=== PATIENT | male | born 1970 | race Caucasian/White ===

== ENCOUNTER → 2021-09-07 11:12 | Outpatient (BNVA) | payer MEDICAID, SELFPAY | PROVIDERS: Visit Provider Nurse Practitioner Family | DX: Z20.822 Contact with and (suspected) exposure to COVID-19 (principal); R51.9 Headache, unspecified; J22 Unspecified acute lower respiratory infection | CPT/HCPCS: 87400; 87635 ==

== ENCOUNTER 2021-12-30 10:47 | Emergency (ER) | payer SELFPAY ==
[2021-12-30 11:11] VITALS: BP 132/89; PULSE 66; RESP 18; TEMP 36.7; O2SAT 97
[2021-12-30 11:28] VITALS: BP 126/77; PULSE 63; RESP 16; O2SAT 95
[2021-12-30 12:19] LABS: Basophils % 0.8 %; Eosinophils % 0.8 %; Hematocrit 44.8 % (42.0-52.0); Hemoglobin 15.2 g/dL (11.7-16.6); Lymphocytes # 1.2 10^3/uL (0.8-4.8); Lymphocytes % 25.9 %; Mean Corpuscular HGB Conc 33.9 g/dL (30.0-36.0); Mean Corpuscular Hemoglobin 29.7 pg (28.0-34.0); Mean Corpuscular Volume 87.7 fl (80-94); Mean Platelet Volume 11.7 fL (7.4-10.4); Monocytes # 0.3 10^3/uL (0.2-0.9); Monocytes % 6.4 %; Neutrophils # 3.11 10^3/uL (1.8-7.7); Neutrophils % 66.1 %; Nucleated Red Blood Cells % 0 %; Platelet Count 258 10^3/cmm (130-400); Red Blood Count 5.11 10^6/uL (4.1-5.3); Red Cell Distribution Width 12.6 % (12.1-15.1); White Blood Count 4.7 10^3/uL (4.0-10.0)
[2021-12-30] MEDS: sodium chloride 0.9% 1,000 ML 999 ML IV (12:24)
[2021-12-30 12:28] VITALS: BP 143/86; PULSE 53; RESP 16; O2SAT 95
[2021-12-30 12:41] LABS: Alanine Aminotransferase 26 U/L (0-41); Albumin Level 4.2 g/dL (3.5-5.2); Alkaline Phosphatase 75 IU/L (40-130); Anion Gap 13.4 (5-19); Aspartate Amino Transferase 29 U/L (0-40); Blood Urea Nitrogen 12 mg/dL (6-20); Calcium 8.9 mg/dL (8.5-10.5); Carbon Dioxide 27 mmol/L (22-29); Chloride 99 mmol/L (98-107); Creatine Phosphokinase 96 U/L (39-308); Creatinine Clr Calc Pharmacy 98.6564; Globulin 3.5 g/dL (1.3-4.6); Glomerular Filtration Rate 140.9 mL/min (90-130); Glucose 101 mg/dL (65-115); Osmolality Calculated 280 mOsm/kg (285-295); Potassium 4.4 mmol/L (3.5-5.1); Sodium 135 mmol/L (136-145); Total Bilirubin 0.4 mg/dL (0.15-1.2); Total Protein 7.7 g/dL (6.6-8.7)
[2021-12-30 13:02] VITALS: BP 174/90; PULSE 62; RESP 16
--- NOTE | 2021-12-30 13:05 | ED_ITS ---
HPI - General Adult General: Chief complaint: General Medical Stated complaint: toes/fingers drawing up at night Time Seen by Provider: 12/30/21 11:35 History of Present Illness: 51-year-old male presents to emergency department chief complaint of muscle cramps have been ongoing in his feet over the last several days reports that he is on his feet a lot and his primary job. The pat sabine reports that he has been taking some of his sisters medication for high blood pressure and has a partial diuretic in it due to him having lack of insurance and finds he reports is been a new occurrence for last 1 week he reports no shortness of breath or chest pain palpitations reporting that the cramping in his feet has been an ongoing issue for greater than 1 week patient has no other complaints. Associated symptoms: Deny chest pain, dyspnea, headache(s), malaise, nausea, rash, palpitations or vomiting Review of Systems General: Reports: 10 or more systems reviewed and unremarkable except in HPI and below Const: Denies: fever(s), chills, fatigue or malaise Eyes: Denies: change in vision or blurry vision Card: Denies: chest pain or palpitations Resp: Denies: dyspnea or productive cough GI: Denies: abdominal pain, nausea or vomiting : Denies: flank pain Musc: Denies: extremity swelling Skin/Breast: Denies: rash or pruritus Neuro: Denies: headache(s) Psych: Denies: anxiety or depression Claudy/Lymph: Denies: easy bleeding All/Imm: Denies: urticaria, throat swelling or facial swelling [facility] ED PFSH: Medical History (Updated 12/30/21 @ 12:53 by Timmy Lamar) Lower respiratory infection Social History Smoking and tobacco status: current every day smoker Physical Exam Const: COMMON NORMALS: no acute distress, patient oriented x3 and healthy appearing HENMT: COMMON NORMALS: normocephalic and atraumatic HEAD & SCALP: normocephalic and atraumatic Eye: COMMON NORMALS: Equal, round and reactive pupils present and EOMs intact bilaterally PUPIL: Yes Equal, round and reactive pupils present Neck/C-Spine: COMMON NORMALS: full ROM, supple and no JVD Lymph: LYMPHATIC: no lymphadenopathy noted Chest: COMMONS NORMALS: normal inspection of the chest and normal palpation of entire chest wall Resp: COMMON NORMALS: normal respiratory effort, No retractions and clear to auscultation bilaterally EFFORT & INSPECTION: Yes able to speak in complete sentences and Yes symmetric chest movement AUSCULTATION: clear to auscultation bilaterally Cardio: COMMON NORMALS: no JVD, regular rate and regular rhythm RATE: regular rate RHYTHM: regular rhythm GI: COMMON NORMALS: Normal to inspection, nondistended, normoactive bowel sounds present, Soft to palpation and non-tender INSPECTION: Yes normal to inspection PALPATION: Yes Soft to palpation : COMMON NORMALS: Yes no CVA tenderness BLADDER/KIDNEY EXAM: Yes no CVA tenderness Back/Pelvis: COMMON NORMALS: no CVA tenderness Extremity: COMMON NORMALS: normal to inspection and full ROM Neuro: COMMON NORMALS: patient oriented x3, CN's II-XII intact bilaterally, moves all extremities and no focal motor deficits Psych: COMMON NORMALS: mental status grossly normal, Normal thought process present, cooperative and normal affect THOUGHT PROCESS: Normal thought process present Skin: COMMON NORMALS: no rashes or lesions noted GENERAL SKIN EXAM: no rashes or lesions noted Course Vital Signs: Vital signs: Vital Signs Temperature 98.0 F 12/30/21 11:11 Pulse Rate 62 12/30/21 13:02 Respiratory Rate 16 12/30/21 13:02 Blood Pressure 174/90 12/30/21 13:02 Pulse Oximetry 95 12/30/21 12:28 [facility] - General Adult Medical Decision Making Due to the patient's admission I will establish involved with provided lab work imaging came back reassuring due to patient having muscle cramps may be due to an overuse injury pattern or with reduction of sodium and potassium advised the patient to drink sports drinks and increase his water consumption especially when he is exerting himself at work advised further follow-up with primary care in 2 to 3 days which he was advised return the interim if any of his symptoms persist or worse. Lab Data : 12/30/21 11:40 12/30/21 11:40 Laboratory Results WBC 4.7 10^3/uL (4.0-10.0) 12/30/21 11:40 RBC 5.11 10^6/uL (4.1-5.3) 12/30/21 11:40 Hgb 15.2 g/dL (11.7-16.6) 12/30/21 11:40 Hct 44.8 % (42.0-52.0) 12/30/21 11:40 MCV 87.7 fl (80-94) 12/30/21 11:40 MCH 29.7 pg (28.0-34.0) 12/30/21 11:40 MCHC 33.9 g/dL (30.0-36.0) 12/30/21 11:40 RDW 12.6 % (12.1-15.1) 12/30/21 11:40 Plt Count 258 10^3/cmm (130-400) 12/30/21 11:40 MPV 11.7 fL (7.4-10.4) H 12/30/21 11:40 Neut % (Auto) 66.1 % 12/30/21 11:40 Lymph % (Auto) 25.9 % 12/30/21 11:40 Mchenry % (Auto) 6.4 % 12/30/21 11:40 Eos % (Auto) 0.8 % 12/30/21 11:40 Baso % (Auto) 0.8 % 12/30/21 11:40 Neut # (Auto) 3.11 10^3/uL (1.8-7.7) 12/30/21 11:40 Lymph # (Auto) 1.2 10^3/uL (0.8-4.8) 12/30/21 11:40 Mchenry # (Auto) 0.3 10^3/uL (0.2-0.9) 12/30/21 11:40 Eos # (Auto) 0.0 10^3/uL (0.0-0.8) 12/30/21 11:40 Baso # (Auto) 0.0 10^3/uL (0.0-0.1) 12/30/21 11:40 Nucleated RBC % (auto) 0 % 12/30/21 11:40 Nucleated RBCs # 0.0 /100WBC 12/30/21 11:40 Sodium 135 mmol/L (136-145) L 12/30/21 11:40 Potassium 4.4 mmol/L (3.5-5.1) 12/30/21 11:40 Chloride 99 mmol/L (98-107) 12/30/21 11:40 Carbon Dioxide 27 mmol/L (22-29) 12/30/21 11:40 Anion Gap 13.4 (5-19) 12/30/21 11:40 BUN 12 mg/dL (6-20) 12/30/21 11:40 Creatinine 0.6 mg/dL (0.7-1.2) L 12/30/21 11:40 GFR Calculation 140.9 mL/min (90-130) H 12/30/21 11:40 Glucose 101 mg/dL (65-115) 12/30/21 11:40 Calculated Osmolality 280 mOsm/kg (285-295) L 12/30/21 11:40 Calcium 8.9 mg/dL (8.5-10.5) 12/30/21 11:40 Total Bilirubin 0.4 mg/dL (0.15-1.2) 12/30/21 11:40 AST 29 U/L (0-40) 12/30/21 11:40 ALT 26 U/L (0-41) 12/30/21 11:40 Alkaline Phosphatase 75 IU/L (40-130) 12/30/21 11:40 Creatine Kinase 96 U/L (39-308) 12/30/21 11:40 Total Protein 7.7 g/dL (6.6-8.7) 12/30/21 11:40 Albumin 4.2 g/dL (3.5-5.2) 12/30/21 11:40 Globulin 3.5 g/dL (1.3-4.6) 12/30/21 11:40 Discharge Plan Discharge Patient Disposition: Home Clinical Impression: Cramp in muscle Condition: Stable Prescriptions: No Action lidocaine HCl [Xylocaine] 10 mg/mL (1 %) solution 1 ml IM ONCE Qty: 1 0RF ceftriaxone 1 gram recon soln 1 g IM ONCE Qty: 1 0RF dexamethasone sodium phosphate 10 mg/mL solution 10 mg IM ONCE Qty: 1 0RF lisinopril 10 mg tablet 10 mg PO DAILY Qty: 30 0RF dexamethasone 6 mg tablet 6 mg PO DAILY 7 Days Qty: 7 0RF doxycycline monohydrate 100 mg tablet 100 mg PO BID 10 Days Qty: 20 0RF Discharge Orders: Discharge ED (Routine); Ordered 12/30/21 Ordered By: Timmy Lamar Referrals: Efra Brunson MD [Physician] - 1-3 days Discharge Diet: Advance as tolerated Discharge Activity: Increase activity as tolerated Patient Instructions: Leg Cramps (ED), Muscle Cramp (ED) Activity Restrictions/Additional Instructions: Follow-up with primary care doctor in 2 to 3 days, make sure that you increase your salt intake as low salt intake can contribute to muscle cramp as well as overuse injuries. Please return the interim if any of your symptoms persist or worse. Coding Level of Care Code ED [employer] for Alexus Woods
== END 2021-12-30 13:05 | disposition home or self-care (01) ==
PROVIDERS: Emergency Provider Emergency Medicine
DX: R25.2 Cramp and spasm (principal); F17.200 Nicotine dependence, unspecified, uncomplicated
CPT/HCPCS: 80053; 82550; 85025; 96360; 99283; J7030